=== PATIENT | female | born 1940 | race Caucasian/White ===

== ENCOUNTER 2025-04-14 16:06 | Emergency (ER) | payer MEDICARE, SELFPAY ==
[2025-04-14 16:09] VITALS: BP 163/84
[2025-04-14 16:47] LABS: Hematocrit 41.3 % (37.0-47.0); Hemoglobin 14.2 g/dL (12.0-16.0); Mean Corp Hgb Conc. 34.4 g/dL (33.0-37.0); Mean Corpuscular Volume 89.2 fL (81.0-99.0); Nucleated Red Blood Cells % 0 %; Platelet Count 267 10^3/uL (130-400); Red Cell Dist. Width 14.6 % (11.5-14.5)
[2025-04-14 16:58] LABS: INR 0.93; PT 13.0 Sec (11.4-14.6)
[2025-04-14 16:59] LABS: APTT 26.8 Sec (23.4-35.0)
[2025-04-14 17:00] LABS: ALT (SGPT) 16 U/L (0-35); AST (SGOT) 17 U/L (14-36); Albumin 4.4 g/dl (3.5-5.0); Alkaline Phosphatase 50 U/L (38-126); Blood Urea Nitrogen 26 mg/dl (7-17); Calcium 10.1 mg/dl (8.4-10.2); Carbon Dioxide 25 mmol/L (22-30); Chloride 107 mmol/L (98-107); Glucose 113 mg/dl (70-99); Potassium 4.3 mmol/L (3.5-5.1); Sodium 139 mmol/L (135-145); Total Protein 6.8 g/dl (6.3-8.2); eGFR > 60.00
[2025-04-14 17:11] LABS: Troponin I < 0.012 ng/ml
[2025-04-14 18:10] VITALS: BP 135/78
--- NOTE | 2025-04-14 20:28 | ED.GENMED ---
History of Present Illness
General
Chief Complaint: Visual Problem
Source: patient and family (son)
Time Seen by Provider: 04/14/25 19:40
History of Present Illness
History of Present Illness:
Note:
CHIEF COMPLAINT(S)
Vision changes.
HISTORY OF PRESENT ILLNESS
The patient is an 84-year-old female who presents with recent visual disturbances. Approximately one week ago, the patient experienced an episode while in the shower, during which she reported an inability to see clearly. It is unclear whether this
was a total loss of vision or simply a transient blurring or [id number]-[id number] experience. The patients family suspects it may have been more of an [id number]-[id number] issue, as she attempted to clean her glasses afterward. Following the episode, the patients
primary care provider, Dr. Persaud, expressed concern about a potential transient ischemic attack or 'mini-stroke,' prompting a recommendation for further evaluation in the emergency department due to concerns of progression to more severe visual
impairment. Patient's son states that they are unable to elicit the exact symptomatology because of her cognitive impairment
ADDITIONAL HISTORY OBTAINED FROM SOURCES OTHER THAN THE PATIENT
The patient�s family has reported the recent vision changes. Her father organized a follow-up visit with Dr. Persaud, an commercial real estate manager, who was the first to recommend emergency evaluation due to his concern of a possible mini-stroke.
CHRONIC MEDICAL CONDITIONS SIGNIFICANTLY AFFECTING CARE
The patient has been noted by family to experience some cognitive impairment, though it is currently undetermined if this is related to past events such as mini-strokes or other etiologies.
PHYSICAL EXAM
General: Alert, no acute distress.
Skin: Warm, dry.
Head: Normocephalic, atraumatic.
Neck: Supple, trachea midline.
Eye, Ears, nose, mouth and throat: Oral mucosa moist.
Cardiovascular: Normal peripheral perfusion, No edema.
Respiratory: Respirations are non-labored.
Gastrointestinal: Abdomen nondistended.
Back: Normal range of motion, Normal alignment.
Musculoskeletal: Normal ROM, normal strength.
Neurological: Alert and oriented to person but confused to place and time. No focal neurological deficit observed. No pronator drift. Cranial nerves intact
Psychiatric: Cooperative, appropriate mood & affect.
PLAN
The patient is under evaluation for potential visual deficits secondary to a transient ischemic event. Given the difficulty of knowing the details of the findings it is difficult to assess whether this could have been a TIA. Check labs and CT
DIFFERENTIAL DIAGNOSIS
The Differential Diagnosis includes, in no particular order and is not limited to:
1. Transient ischemic attack (TIA)
2. Cerebrovascular accident (CVA)
3. Ophthalmic migraines
4. Age-related macular degeneration
5. Glaucoma
6. Cataracts
7. Retinal detachment
8. Optic neuritis
9. Temporal arteritis
10. Neurological condition affecting vision such as Alzheimer�s disease effects
CARE-UPDATE
04/14/25 - 20:27
The consulting physician has communicated with the primary doctor, and they both agree that hospitalization is not necessary at this time. The plan is for the patient to be discharged home with a follow-up scheduled for the next morning. The primary
doctor will reach out to the patient by 9:00 AM for further instructions. The patient was advised to stay hydrated, particularly if experiencing blurred vision associated with potential lightheadedness, which may not be purely ocular in nature.
Environmental temperature regulation at home was discussed, highlighting the importance of not keeping the home too warm, particularly given recent observations. All necessary documentation will be provided to accompany the patient home.
EKG
My independent EKG interpretation is:
- Time of EKG not specified
- Rhythm: Normal sinus rhythm
- Heart rate: 64 bpm
- [place]: Normal
- Intervals: Normal
- Notable abnormalities: Non-specific ST-T wave changes
Disposition:
SUMMARY OF ENCOUNTER
An 84-year-old female presented with vision changes experienced approximately one week ago. The patients family was unable to provide a detailed description due to the patients cognitive impairment, and the patient could not provide a clear history
during the examination. The possibility of it being either an ocular or central nervous system issue or a retinal artery occlusion was considered. A thorough evaluation in the emergency department was conducted, with attention given to potential
transient ischemic attacks (TIA) or other neurological concerns. Given the patients confusion and considering the limited information on the exact nature of the vision changes, hospitalization was deemed not beneficial. Instead, a follow-up with her
electric organ assembler was scheduled to continue her care and consider additional testing.
DISPOSITION
Discharge.
ASSESSMENT
Vision changes in an 84-year-old female with cognitive impairment. The potential etiologies range from ocular issues to central nervous system disorders, including a transient ischemic attack or retinal artery occlusion.
MANAGEMENT OF THE PATIENTS CARE WAS DISCUSSED WITH
The case was discussed with the patient�s electric organ assembler, who agreed with the decision not to hospitalize the patient and to manage her care on an outpatient basis.
PLAN
The patient was discharged with a plan for her electric organ assembler to see her the next day for continued care and further evaluation. The family was advised to monitor for any changes and return if necessary.
INDEPENDENT REVIEW OF LABS AND INTERPRETATION OF TESTS
My independent review of the CBC is normal, with a hemoglobin level of 14.2, normal platelet count, and normal white blood cell count.
My independent review of the BMP indicates a blood glucose level of 113, normal sodium, and creatinine 0.16.
My independent review of troponin is negative at less than 0.012.
My independent review of the liver function tests (LFT) is normal.
My independent CT of the head shows no acute intracranial abnormalities.
MEDICAL DECISION MAKING
-Chronic conditions affecting care: Cognitive impairment alongside DDx considerations: transient ischemic attack (TIA), cerebrovascular accident (CVA), ophthalmic migraines, age-related macular degeneration, glaucoma, cataracts, retinal detachment,
optic neuritis, temporal arteritis, and potential neurological conditions like Alzheimer�s disease which could affect vision.
-Data:
Category 1:
My independent interpretation of the CT head shows no acute intracranial abnormalities.
Category 2:
Clinical information was obtained from an independent historian due to the patients cognitive impairment.
Category 3:
Discussion of management with the patients electric organ assembler who agreed with the discharge and outpatient follow-up plan.
DIAGNOSIS
Vision changes, unspecified (ICD-10: H53.9)
Cognitive impairment, unspecified (ICD-10: R41.9)
Phy Exam
Physical Exam
Physical Exam:
.
Course
Orders/Labs/Results
Orders:
Orders
04/14/25 16:14
Electrocardiogram (*1) Urgent
Reason for Study: Other
Other Reason for Exam: Possible Stroke
Head wo Contrast CT [CT Head W/o Iv Contrast] Urgent
Comment:
Reason For Exam: vision change/memory loss x 1 week
EKG- Treatment ONCE
04/14/25 16:30
C-Reactive Protein Urgent
Comment: ADD ON
Complete Blood Count/With Diff Urgent
Comprehensive Metabolic Panel Urgent
Erythrocyte Sed Rate Urgent
Comment: ADD ON
PTT Urgent
Prothrombin Time Urgent
Troponin I Urgent
04/14/25 20:09
Add On- LAB Urgent
Tests Added?: ESR, CRP
Abnormal Lab Results
04/14/25
16:30
RDW 14.6 H %
(11.5-14.5)
Absolute Monos (auto) 0.8 H 10^3/uL
(0.1-0.6)
Lymphocytes % 17.9 L %
(20.5-51.1)
Monocytes % 9.8 H %
(1.7-9.3)
BUN 26 H mg/dl
(7-17)
Glucose 113 H mg/dl
(70-99)
04/14/25 16:30
04/14/25 16:30
Vital Signs
Initial and Last Documented VS:
Initial Vital Signs
Temp Pulse Resp BP Pulse Ox
97.9 F 70 16 163/84 96
04/14/25 16:09 04/14/25 16:09 04/14/25 16:09 04/14/25 16:09 04/14/25 16:09
Last Documented Vital Signs
Temp Pulse Resp BP Pulse Ox
97.9 F 64 16 135/78 97
04/14/25 16:09 04/14/25 18:15 04/14/25 18:15 04/14/25 18:10 04/14/25 20:34
*Pulse Oximetry
SaO2: 97
Oxygen Mode of Delivery: Room air
Patient hypoxic: no
*Critical Care Note
Total Time (30-74mins, 75-104mins- exclusive of procedures): Not Applicable
ED Attending Note
-
Portions of this chart may have been created with voice recognition software.� Occasional wrong word or��sound alike� substitutions may have occurred due to the inherent limitations of voice recognition software.
Discharge Plan
Departure
Patient Disposition: Home (Routine Discharge)
Date of Disposition: 04/14/25
Time of Disposition: 20:29
Patient with high blood pressure during this ER visit?: No
Discharge Problem:
Changes in vision
Referrals:
Abigail Donovan MD [Family Provider, Internal Medicine]
Activity Restrictions/Additional Instructions:
Vision changes�resolved
Please see your doctor tomorrow as advised. Further workup may be necessary. Return immediately for motor weakness, vision changes, changes in mentation, fevers or any other concerns.
Interventions
Interventions:
*Risk Screen - Suicide Last Done: 04/14/25 16:09
*General Assessment Last Done: 04/14/25 17:53
*Neglect/Abuse Screening Last Done: 04/14/25 16:09
*ED- Fall Risk Assessment Last Done: 04/14/25 16:09
*ED COVID-19 Vaccine History Last Done: 04/14/25 17:53
*Nursing Disposition Last Done: 04/14/25 20:42
ED- Neurological Assessment Last Done: 04/14/25 20:40
ED-EENT Assessment Last Done: 04/14/25 20:40
ED Swallowing Screen Last Done: 04/14/25 20:40
Discharge Date and Time
Discharge Date/Time: 04/14/25 20:43
Print Language: LATVIAN
[2025-04-14 20:51] LABS: C-Reactive Protein < 5.00 mg/L (0.0-10.00)
== END 2025-04-14 20:43 | disposition home or self-care (01) ==
LOC: EMR 16:06
PROVIDERS: Emergency Medicine; EMERGENCY PHYSICIAN Emergency Medicine; FAMILY PHYSICIAN Internal Medicine Geriatric Medicine
DX: H53.9 Unspecified visual disturbance (principal); R41.9 Unspecified symptoms and signs involving cognitive functions and awareness
CPT/HCPCS: 99284; 70450; 80053; 84484; 85025; 85610; 85652; 85730; 86140; 93005